=== PATIENT | female | born 1940 | race Caucasian/White ===

== ENCOUNTER → 2016-10-12 | Outpatient (CLI) | payer MEDICARE, OTHER ==
[2016-10-12 13:35] VITALS: BP 131/72; PULSE 68; TEMP 98.7; BMI 22.5
[2016-10-12 13:59] LABS: CHCM 31.8; HCT 38.9 % (34.0-46.0); HGB 12.3 gm/dL (11.4-16.0); MCH 30.1 pg (25.0-35.0); MCHC 31.7 g/dL (31.0-37.0); MCV 94.9 fL (80.0-100.0); Mean Platelet Volume 9.4; RBC 4.09 m/uL (3.80-5.40); WBC 5.5 k/uL (3.8-10.6)
[2016-10-12 14:12] LABS: ALT 39 U/L (9-52); AST 33 U/L (14-36); Alkaline Phosphatase 70 U/L (38-126); Anion Gap 11 mmol/L; Blood Urea Nitrogen 17 mg/dL (7-17); Calcium 9.3 mg/dL (8.4-10.2); Carbon Dioxide 28 mmol/L (22-30); Chloride 103 mmol/L (98-107); Glucose 104 mg/dL (74-99); Non-African American GFR(MDRD) >60 (>60 ml/min/1.73 sqM); Potassium 3.8 mmol/L (3.5-5.1); Sodium 142 mmol/L (137-145); Total Bilirubin 0.4 mg/dL (0.2-1.3); Total Protein 6.6 g/dL (6.3-8.2)
[2016-10-12 14:21] LABS: Total Iron Binding Capacity 341 ug/dL (265-497)
--- NOTE | 2016-10-12 14:41 | P.HPBAR ---
Bariatric H&P - History & Physicial H&P Date: 10/12/16 History & Physicial: Visit/CC: follow up visit Patient initial contact: Initial weight: Initial weight in pounds: Height: 5 ft 6 in Initial BMI: Last weight: Current weight: 63.412 kg Current weight in pounds: 139.80 Current BMI: 22.5 [place] body weight (based on NIH guidelines): 58.967 kg Excess body weight loss: The patient is a 75 year-old F who presents for Bariatric Assessment. Patient presents today for sleeve gastrectomy follow-up. I'm not seen her over a year. She states her weight has been stable. She's had some minimal GERD symptoms. Past Medical History Smoking Status: Never smoker Surgical - Exam Vital Signs Temp Pulse BP 98.7 F 68 131/72 10/12/16 13:08 10/12/16 13:08 10/12/16 13:08 - General well developed - Abdomen Abdomen: soft, non tender Results - Labs 10/12/16 13:34 Abnormal Lab Results - Last 24 Hours (Table) 10/12/16 Range/Units 13:34 Plt Count 145 L (150-450) k/uL Bariatric Assessment & Plan Plan: Status post sleeve yesterday. Patient is doing well from weight loss standpoint. Her GERD spell are minimal and will be observed. She'll follow-up in 2 months. Bariatric Checklist Checklist: Plan: Checklist: EGD: 1. Hiatal hernia: 2. H. Pylori: HgbA1c: Vitamin D: Smoking: Never smoker Primary care physician referral: dr seo Psychiatry clearance: Cardiology clearance: Sleep study: Diet journal: VTE risk score: VTE risk level: Rehab needs at discharge:
[2016-10-12 15:01] LABS: Vitamin B12 296 pg/mL
== END | disposition home or self-care (01) ==
LOC: BARWHC3 12:24
PROVIDERS: ATTEND Surgery
DX: Z09 Encounter for follow-up examination after completed treatment for conditions other than malignant neoplasm (principal); D50.8 Other iron deficiency anemias; E44.0 Moderate protein-calorie malnutrition; E55.9 Vitamin D deficiency, unspecified; Z98.84 Bariatric surgery status
CPT/HCPCS: 80053; 82607; 83550; 84443; 85027; 82306; G0463; 99201

== ENCOUNTER → 2019-01-30 | Outpatient (CLI) | payer MEDICARE, OTHER ==
--- NOTE | 2019-01-30 17:52 | P.HPBAR ---
Bariatric H&P - History & Physicial H&P Date: 01/30/19 History & Physicial: Visit/CC: Patient initial contact: Initial weight: Initial weight in pounds: Height: Initial BMI: Last weight: Current weight: Current weight in pounds: Current BMI: [place] body weight (based on NIH guidelines): Excess body weight loss: The patient is a 78 year-old F who presents for Bariatric Assessment. Patient presents today for lab band follow up. She has had complaints of GERD. Been seen several years. Past Medical History Past Medical History: Asthma, Hypertension History of Any Multi-Drug Resistant Organisms: None Reported Past Surgical History: Bariatric Surgery, Hysterectomy, Orthopedic Surgery Additional Past Surgical History / Comment(s): bilateral achilles tendon surgery Past Anesthesia/Blood Transfusion Reactions: No Reported Reaction Past Psychological History: No Psychological Hx Reported Smoking Status: Never smoker Past Alcohol Use History: None Reported Past Drug Use History: None Reported Surgical - Exam - General well developed, well nourished, no distress - Eyes PERRL - Abdomen Abdomen: soft, non tender Bariatric Assessment & Plan Plan: The patient will undergo EGD to evaluate her GERD. Bariatric Checklist Checklist: Plan: Checklist: EGD: 1. Hiatal hernia: 2. H. Pylori: HgbA1c: Vitamin D: Smoking: Never smoker Primary care physician referral: dr seo Psychiatry clearance: Cardiology clearance: Sleep study: Diet journal: VTE risk score: VTE risk level: Rehab needs at discharge:
[2019-02-01 14:11] VITALS: BP 130/84; PULSE 76; RESP 16; TEMP 98.2; BMI 20.5
== END | disposition home or self-care (01) ==
LOC: BARWHC3 13:25
PROVIDERS: ATTEND Surgery
DX: Z46.51 Encounter for fitting and adjustment of gastric lap band (principal); K21.9 Gastro-esophageal reflux disease without esophagitis; Z98.84 Bariatric surgery status
CPT/HCPCS: 99201

== ENCOUNTER → 2019-09-25 | Outpatient (CLI) | payer MEDICARE, OTHER ==
[2019-09-25 13:49] VITALS: BP 121/80; PULSE 66; RESP 16; TEMP 98.3; BMI 21.7
--- NOTE | 2019-09-25 14:04 | P.HPBAR ---
Bariatric H&P - History & Physicial H&P Date: 09/25/19 History & Physicial: Visit/CC: sleeve, follow up, requesting scope Patient initial contact: Initial weight: 105.233 kg Initial weight in pounds: 232.00 Height: 5 ft 6 in Initial BMI: 37.4 Last weight: Current weight: 61.054 kg Current weight in pounds: 134.60 Current BMI: 21.7 [place] body weight (based on NIH guidelines): 58.967 kg Excess body weight loss: 95.4% The patient is a 78 year-old F who presents for Bariatric Assessment. Patient presents today for follow-up. She is going to GERD. Her recent CAT scan shows evidence of thickening of the distal esophagus. Past Medical History Past Medical History: Asthma, Hypertension History of Any Multi-Drug Resistant Organisms: None Reported Past Surgical History: Bariatric Surgery, Hysterectomy, Orthopedic Surgery Additional Past Surgical History / Comment(s): bilateral achilles tendon surgery Past Anesthesia/Blood Transfusion Reactions: No Reported Reaction Past Psychological History: No Psychological Hx Reported Smoking Status: Never smoker Past Alcohol Use History: None Reported Past Drug Use History: None Reported Surgical - Exam Vital Signs Temp Pulse Resp BP Pulse Ox 98.3 F 66 16 121/80 97 09/25/19 13:45 09/25/19 13:45 09/25/19 13:45 09/25/19 13:45 09/25/19 13:45 - General well developed, well nourished, no distress - Eyes PERRL - ENT normal pinna - Neck no masses - Respiratory normal expansion - Cardiovascular Rhythm: regular - Abdomen Abdomen: soft, non tender Bariatric Assessment & Plan Plan: GERD. Patient is scheduled for EGD. Bariatric Checklist Checklist: Plan: Checklist: EGD: 1. Hiatal hernia: 2. H. Pylori: HgbA1c: Vitamin D: Smoking: Never smoker Primary care physician referral: [facility] Psychiatry clearance: Cardiology clearance: Sleep study: Diet journal: VTE risk score: VTE risk level: Rehab needs at discharge:
== END | disposition home or self-care (01) ==
LOC: BARWHC3 13:36
PROVIDERS: ATTEND Surgery
DX: Z48.815 Encounter for surgical aftercare following surgery on the digestive system (principal); Z98.84 Bariatric surgery status
CPT/HCPCS: 99211

== ENCOUNTER 2019-10-20 11:19 | Day surgery (SDC) | payer MEDICARE, OTHER ==
[2019-10-13 10:05] VITALS: BMI 20.5
[~2019-10-20 11:19] MED LIST: LACTATED RINGERS 1,000 ML IV SCH; LIDOCAINE 1% (10MG/ML) FOR IV START INTRADERMA PRN
[2019-10-20 12:27] VITALS: TEMP 98.5
[2019-10-20] MEDS ORDERED: LIDOCAINE 1% INJ 10MG/ML (20 ML MDV) ONE (13:12)
[2019-10-20] MEDS ORDERED: PROPOFOL 10 MG/ML 20 ML VIAL IV ONE (13:12)
--- NOTE | 2019-10-20 13:16 | P.GSHP ---
History of Present Illness H&P Date: 10/20/19 Chief Complaint: GERD This a 78-year-old female presents today for EGD. Patient issues with GERD. Her recent CAT scan performed in [place] shows evidence of the cranial the distal esophagus. Past Medical History Past Medical History: GERD/Reflux, Hypertension Additional Past Medical History / Comment(s): GASTRIC SLEEVE, HX OF DIVERTICULOSIS, ANEMIA., STATES MASS IN HER LUNG THAT IS SHRINKING (FOLLOWS DIALLO Ernst DR IN [place]). History of Any Multi-Drug Resistant Organisms: None Reported Past Surgical History: Bariatric Surgery, Cholecystectomy, Hysterectomy, Orthopedic Surgery Additional Past Surgical History / Comment(s): Lap Band surgery and removal, Gastric Sleeve., right achilles tendon surgery, ? HIATAL HERNIA REPAIR Past Anesthesia/Blood Transfusion Reactions: No Reported Reaction Past Psychological History: No Psychological Hx Reported Smoking Status: Never smoker Past Alcohol Use History: Occasional Past Drug Use History: None Reported - Past Family History Mother Family Medical History: No Reported History Medications and Allergies Home Medications Medication Instructions Recorded Confirmed Type Gabapentin [Neurontin] 100 mg PO HS 02/02/19 10/20/19 History Losartan [Cozaar] 50 mg PO DAILY@1600 02/02/19 10/20/19 History Famotidine 20 mg PO BID 09/25/19 10/20/19 History Ascorbic Acid [Vitamin C] 240 mg PO DAILY 10/20/19 10/20/19 History Biotin 2,500 mcg PO DAILY 10/20/19 10/20/19 History Calcium Carbonate/Vitamin D3 500 mg PO DAILY 10/20/19 10/20/19 History [Calcium 250-D Tablet] Cholecalciferol [Vitamin D3 (25 1,000 unit PO DAILY 10/20/19 10/20/19 History Mcg = 1000 Iu)] Cider Vinegar [Apple Cider Vinegar] 450 mg PO DAILY 10/20/19 10/20/19 History Cyanocobalamin/Cobamamide [Vitamin 5,000 mcg PO DAILY 10/20/19 10/20/19 History B-12 5,000 Mcg Tab Sl] Folic Acid 400 mcg PO DAILY 10/20/19 10/20/19 History Inulin/Chromium Picolinate [Fiber 5 gram PO DAILY 10/20/19 10/20/19 History Gummies Chew] Magnesium Oxide 400 mg PO DAILY 10/20/19 10/20/19 History Multivitamins, Thera [Multivitamin 1 tab PO DAILY 10/20/19 10/20/19 History (formulary)] Pyridoxine HCl (Vitamin B6) 100 mg PO DAILY 10/20/19 10/20/19 History [Vitamin B-6] Turmeric Root Extract [Turmeric] 500 mg PO DAILY 10/20/19 10/20/19 History Vitamin A 2,400 mcg PO DAILY 10/20/19 10/20/19 History Allergies Allergy/AdvReac Type Severity Reaction Status Date / Time No Known Allergies Allergy Verified 10/20/19 12:26 Surgical - Exam Vital Signs Temp Pulse Resp BP Pulse Ox 98.5 F 76 16 147/79 97 10/20/19 12:02 10/20/19 12:02 10/20/19 12:02 10/20/19 12:02 10/20/19 12:02 - General well developed, well nourished, no distress - Eyes PERRL - ENT normal pinna - Neck no masses - Respiratory normal expansion - Cardiovascular Rhythm: regular - Abdomen Abdomen: soft, non tender Assessment and Plan Assessment: GERD. We'll perform EGD.
--- NOTE | 2019-10-20 13:22 | P.OP ---
Date of Procedure: 10/20/19 Preoperative Diagnosis: GERD Postoperative Diagnosis: Esophagitis Procedure(s) Performed: EGD Anesthesia: MAC Surgeon: Nikolai Reilly Pathology: other (Esophagus) Condition: stable Disposition: PACU Description of Procedure: The patient's placed on the endoscopy table in the lateral position. She receiv ed IV sedation. The gastroscope placed oropharynx passed in the esophagus and stomach. Scope then placed through the pylorus. The first second portion duodenum appeared normal. Scope was then brought back the antrum this appeared normal. Scope was then brought back further and the patient had a previous gastric sleeve. As no evidence of obstruction or torsion of the sleeve. The GE junction was at 40 cm. There was a minimal hiatal hernia. The distal esophagus appeared mildly inflamed and a biopsies performed. The proximal esophagus appeared normal. Scope was withdrawn for patient.
[2019-10-20 14:02] VITALS: BP 130/71; PULSE 60; RESP 20
== END 2019-10-20 14:08 | disposition home or self-care (01) ==
LOC: ORWHC2ENDO 11:19
PROVIDERS: ATTEND Surgery
DX: K21.0 Gastro-esophageal reflux disease with esophagitis (principal); I10 Essential (primary) hypertension; Z98.84 Bariatric surgery status; K57.30 Diverticulosis of large intestine without perforation or abscess without bleeding; D64.9 Anemia, unspecified; R91.8 Other nonspecific abnormal finding of lung field; Z97.2 Presence of dental prosthetic device (complete) (partial); Z90.49 Acquired absence of other specified parts of digestive tract; Z90.710 Acquired absence of both cervix and uterus; Z98.890 Other specified postprocedural states; Z79.899 Other long term (current) drug therapy
CPT/HCPCS: 43239; J2001; J2704; 88305; 88312

== ENCOUNTER → 2019-12-04 | Outpatient (CLI) | payer MEDICARE, OTHER ==
[2019-12-04 14:20] VITALS: BP 130/82; PULSE 97; TEMP 98.2; BMI 22.1
--- NOTE | 2019-12-04 14:28 | P.HPBAR ---
Bariatric H&P - History & Physicial H&P Date: 12/04/19 History & Physicial: Visit/CC: egd follow up Patient initial contact: Initial weight: 105.233 kg Initial weight in pounds: 232.00 Height: 5 ft 6 in Initial BMI: 37.4 Last weight: Current weight: 62.142 kg Current weight in pounds: 137.00 Current BMI: 22.1 [place] body weight (based on NIH guidelines): 58.967 kg Excess body weight loss: 93.1% The patient is a 79 year-old F who presents for Bariatric Assessment. Patient resents today for sleeve gastrectomy follow-up. She is going to [place] for the later. She's had mild GERD. Past Medical History Past Medical History: GERD/Reflux, Hypertension Additional Past Medical History / Comment(s): GASTRIC SLEEVE, HX OF DIVERTICULOSIS, ANEMIA., STATES MASS IN HER LUNG THAT IS SHRINKING (FOLLOWS WITH DR IN [place]). History of Any Multi-Drug Resistant Organisms: None Reported Past Surgical History: Bariatric Surgery, Cholecystectomy, Hysterectomy, Orthopedic Surgery Additional Past Surgical History / Comment(s): Lap Band surgery and removal, Gastric Sleeve., right achilles tendon surgery, ? HIATAL HERNIA REPAIR Past Anesthesia/Blood Transfusion Reactions: No Reported Reaction Past Psychological History: No Psychological Hx Reported Smoking Status: Never smoker Past Alcohol Use History: Occasional Past Drug Use History: None Reported - Past Family History Mother Family Medical History: No Reported History Surgical - Exam Vital Signs Temp Pulse BP 98.2 F 97 130/82 12/04/19 14:18 12/04/19 14:18 12/04/19 14:18 - General well developed, well nourished, no distress - Eyes PERRL - ENT normal pinna - Abdomen Abdomen: soft, non tender Bariatric Assessment & Plan Plan: Status post sleeve gastrectomy. Patient still quite well. Her GERD is minimal abuser. She'll follow-up in 6 months. Her omeprazole will be renewed. Bariatric Checklist Checklist: Plan: Checklist: EGD: 1. Hiatal hernia: 2. H. Pylori: HgbA1c: Vitamin D: Smoking: Never smoker Primary care physician referral: [facility] Psychiatry clearance: Cardiology clearance: Sleep study: Diet journal: VTE risk score: VTE risk level: Rehab needs at discharge:
== END | disposition home or self-care (01) ==
LOC: BARWHC3 13:11
PROVIDERS: ATTEND Surgery
DX: Z48.815 Encounter for surgical aftercare following surgery on the digestive system (principal); K21.9 Gastro-esophageal reflux disease without esophagitis; Z98.84 Bariatric surgery status; Z90.49 Acquired absence of other specified parts of digestive tract; Z90.710 Acquired absence of both cervix and uterus
CPT/HCPCS: 99211